=== PATIENT | female | born 1960 | race Caucasian/White ===

== ENCOUNTER 2019-03-31 22:05 | Emergency (ER) | payer BC, OTHER ==
[~2019-03-31] VITALS: Ht 177.8 cm; Wt 77.1 kg
[2019-03-31 22:15] VITALS: BP 138/78
[2019-04-01] MEDS ORDERED: cefTRIAXone SOD 1,000 MG VL IM ONE (00:45)
[2019-04-01] MEDS ORDERED: MEPERIDINE HCL (50 MG/ML) 1 ML VIAL IM ONE (00:45)
[2019-04-01] MEDS ORDERED: ONDANSETRON ODT 4 MG TAB PO ONE (00:45)
[2019-04-01] MEDS ORDERED: MORPHINE SULFATE 10 MG/ML INJ 1ML SDV IM ONE (01:00)
[2019-04-01] MEDS ORDERED: LIDOCAINE 2%HCL (LOCAL ANESTH.) INJ 10ml MDV IJ ONE (01:30)
[2019-04-01] MEDS ORDERED: TETANUS-DIPTH-ACEL PERTUSSIS 0.5ML SYRG IM ONE (02:15)
== END 2019-04-01 03:34 | disposition home or self-care (01) ==
LOC: ER 22:07
DX: S62.630B Displaced fracture of distal phalanx of right index finger, initial encounter for open fracture (principal); S61.210A Laceration without foreign body of right index finger without damage to nail, initial encounter; F17.210 Nicotine dependence, cigarettes, uncomplicated; Z88.0 Allergy status to penicillin; Z88.1 Allergy status to other antibiotic agents; W54.0XXA Bitten by dog, initial encounter; Y93.89 Activity, other specified; Y92.89 Other specified places as the place of occurrence of the external cause; Y99.8 Other external cause status
CPT/HCPCS: 12041; 73140; 90471; 90715; 96372; 99284; J0696; J2001; J2270; Q0162